=== PATIENT | male | born 1995 | race American Indian/Alaskan Native ===

== ENCOUNTER 2020-02-16 18:48 | Emergency (ER) | payer BC ==
[2020-02-16 19:33] VITALS: BP 154/77
--- NOTE | 2020-02-16 20:20 | Emergency Department Report ---
ED General Adult HPI - General Chief complaint: Upper Respiratory Infection Stated complaint: CHEST PAIN/POSS COVID EXPOSURE Time Seen by Provider: 02/16/20 19:33 Source: patient Mode of arrival: Ambulatory Limitations: No Limitations - History of Present Illness Initial comments: This is a 24-year-old -[place] male who presents to the emergency room with chest pain for several days. Past medical history of acid reflux. Patient states he is taking Topamax with no changes in symptoms. Wash all linens underclothes and hot water or back pokey items and keep seal for 2 weeks. You may feel itching for 1-2 weeks after clearing. Someone is strep was diagnosed with coronavirus. He also have been around a 47 he recently got tested for coronavirus and awaiting results. He denies shortness of breath, fever, chills, diaphoresis, weakness, palpitations, change in sense of smell or taste, nausea, vomiting, or diarrhea. Onset/Timin -: days(s) Location: chest Radiation: non-radiation Severity scale (0 -10): 3 Quality: other (Tightness) Consistency: intermittent Improves with: none Worsens with: other (Deep breaths) Associated Symptoms: denies: confusion, chest pain, cough, diaphoresis, fever/chills, loss of appetite, nausea/vomiting, shortness of breath, weakness Treatments Prior to Arrival: none - Related Data Allergies Allergy/AdvReac Type Severity Reaction Status Date / Time No Known Allergies Allergy Unverified 02/16/20 19:31 ED Review of Systems ROS: Stated complaint: CHEST PAIN/POSS COVID EXPOSURE Other details as noted in HPI Constitutional: denies: chills, fever ENT: denies: ear pain, throat pain Respiratory: denies: cough, shortness of breath, wheezing Cardiovascular: chest pain. denies: palpitations Gastrointestinal: denies: abdominal pain, nausea, diarrhea Musculoskeletal: denies: back pain, joint swelling, arthralgia Skin: denies: rash, lesions Neurological: denies: headache, weakness, paresthesias Psychiatric: denies: anxiety, depression ED Past Medical Hx - Past Medical History Hx GERD: Yes - Social History Smoking Status: Never Smoker ED Physical Exam - General Limitations: No Limitations General appearance: alert, in no apparent distress - ENT ENT exam: Present: normal orophraynx, mucous membranes moist, TM's normal bilaterally, normal external ear exam - Respiratory Respiratory exam: Present: normal lung sounds bilaterally. Absent: respiratory distress, wheezes, rales, rhonchi, stridor, chest wall tenderness - Cardiovascular Cardiovascular Exam: Present: regular rate, normal rhythm. Absent: systolic murmur, diastolic murmur, rubs, gallop - GI/Abdominal GI/Abdominal exam: Present: soft, normal bowel sounds. Absent: distended, tenderness, guarding, rebound, rigid - Extremities Exam Extremities exam: Present: normal inspection - Neurological Exam Neurological exam: Present: alert, oriented X3, normal gait - Psychiatric Psychiatric exam: Present: normal affect, normal mood - Skin Skin exam: Present: warm, dry, intact, normal color. Absent: rash ED Course Vital Signs 02/16/20 19:27 Temperature 98.2 F Pulse Rate 68 Respiratory 18 Rate Blood Pressure 154/77 O2 Sat by Pulse 99 Oximetry ED Medical Decision Making - Radiology Data Radiology results: report reviewed CHEST 2 VIEWS INDICATION / CLINICAL INFORMATION: chest pain. COMPARISON: None available. FINDINGS: SUPPORT DEVICES: None. HEART / MEDIASTINUM: No significant abnormality. LUNGS / PLEURA: No significant pulmonary or pleural abnormality. No pneumothorax. ADDITIONAL FINDINGS: No significant additional findings. IMPRESSION: Normal chest. - Medical Decision Making 24 y.o. male that presents with substernal chest pain for 2-3 days with deep breaths. Denies shortness of breath, fever, chills, diaphoresis, weakness, palpitations, change in sense of smell or taste, nausea, vomiting, or diarrhea. No significant PMH. Vitals normal. Workup: chest xray. Chest x-ray negative for acute cardiopulmonary findings. Due to work-up and exam there is low suspicion for acute coronary syndrome. Instructed to start 14 day quarantine for possible COVID19 contact. Take Tylenol for pain. Increase fluid intake. Good hygiene. Referrals given for PCP follow up. Discharged home stable. Follow up with PCP in 24-48 hours. Given strict return instructions. Critical care attestation.: If time is entered above; I have spent that time in minutes in the direct care of this critically ill patient, excluding procedure time. ED Disposition Clinical Impression: Chest pain Qualifiers: Chest pain type: other chest pain Qualified Code(s): R07.89 - Other chest pain; R07.8 - Other chest pain Disposition: TO HOME OR SELFCARE Is pt being admited?: No Condition: Stable Instructions: Chest Pain (ED) Additional Instructions: Increase fluid intake and rest. Wash hands frequently. Start taking Tylenol for pain management. Start 14 day quarantine for possible COVID19 contact. Follow up with Primary Care Provider. Return to ER if fever, SOB, or difficulty breathing after 48 hours of supportive care. Referrals: MAYKEL GÓMEZ MD [Staff Physician] - 3-5 Days NATHAN DONNELLY MD [Staff Physician] - 3-5 Days [facility] [Outside] - 3-5 Days [facility] [Provider Group] - 3-5 Days Time of Disposition: 20:36
--- NOTE | 2020-02-16 20:26 | XRay Report ---
CHEST 2 VIEWS INDICATION / CLINICAL INFORMATION: chest pain. COMPARISON: None available. FINDINGS: SUPPORT DEVICES: None. HEART / MEDIASTINUM: No significant abnormality. LUNGS / PLEURA: No significant pulmonary or pleural abnormality. No pneumothorax. ADDITIONAL FINDINGS: No significant additional findings. IMPRESSION: Normal chest. Signer Name: Tc Valles MD Signed: 02/16/2020 8:21 PM Workstation Name: [id number]
== END 2020-02-16 20:43 | disposition home or self-care (01) ==
LOC: ED 18:48
DX: R07.9 Chest pain, unspecified (principal); K21.9 Gastro-esophageal reflux disease without esophagitis; Z20.828 Contact with and (suspected) exposure to other viral communicable diseases
CPT/HCPCS: 71046; 99283